=== PATIENT | male | born 1955 | race Caucasian/White ===

== ENCOUNTER → 2023-03-09 07:53 | Outpatient (CLI) | payer MEDICARE, SELFPAY ==
--- NOTE | ~2023-03-09 | MR_ITS ---
MRI of the lumbar spine Clinical History: Radiculopathy Technique: Axial T2-weighted images, and sagittal T1-weighted, T2-weighted, and T2 fat-sat images wer e acquired. Findings: No fracture identified. 4 mm retrolisthesis of L1 over L2 present. 3 mm retrolisthesis of L 2 over L3 present. No suspicious bone marrow signal abnormality seen. At L1-L2, there is severe degenerative disc narrowing. There is moderate facet arthropathy. Without s ignificant disc bulge. No central canal stenosis. There is mild to moderate bilateral neural foramina l narrowing. At L2-L3, there is moderate degenerative disc narrowing with moderate facet arthropathy. There is a r ight paracentral to right foraminal disc bulge, with probable right lateral recess stenosis. No centr al canal stenosis. There is minimal bilateral neural foraminal narrowing. L3-L4, there is moderate degenerative disc narrowing. There is advanced facet arthropathy. There is m inimal central canal stenosis. There is moderate to severe bilateral neural foraminal narrowing. At L4-L5, there is moderate facet arthropathy with minimal disc bulge. No central canal stenosis. The re is mild to moderate bilateral neural foraminal narrowing. At L5-S1, there is no disc bulge or herniation. There is mild to moderate facet arthropathy. No centr al canal stenosis. There is mild bilateral neural foraminal narrowing. Paravertebral soft tissues are unremarkable. Impression: [id number] degenerative spondylitic changes, as detailed above. 4 mm retrolisthesis of L1 over L2. 3 mm retrolisthesis of L2 over L3. Reviewed, dictated and finalized at location . Impression: [id number] degenerative spondylitic changes, as detailed above. 4 mm retrolisthesis of L1 over L2. 3 mm retrolisthesis of L2 over L3.
== END ==
PROVIDERS: PCP Family Medicine Adolescent Medicine; Visit Provider Family Medicine Adolescent Medicine
DX: M47.816 Spondylosis without myelopathy or radiculopathy, lumbar region (principal); M43.16 Spondylolisthesis, lumbar region
CPT/HCPCS: 72148